=== PATIENT | female | born 1990 | race African-American/Black ===

== ENCOUNTER 2018-04-13 03:48 | Inpatient (IN) ==
[2018-04-13] MEDS ORDERED: ONDANSETRON 4 MG/2 ML VIAL ONE (04:11)
[2018-04-13] MEDS ORDERED: MORPHINE 4 MG/1 ML VIAL ONE (04:11)
[2018-04-13] MEDS ORDERED: SODIUM CHLORIDE 0.9% 1,000 ML IV STA ×2 (04:12→04:13)
[2018-04-13] MEDS ORDERED: MORPHINE 4 MG/1 ML VIAL IV STA ×2 (04:13→04:29)
[2018-04-13] MEDS ORDERED: ONDANSETRON 4 MG/2 ML VIAL IV STA (04:13)
[2018-04-13 04:28] LABS: Basophils # 0.1 10*3/uL (0.0-0.2); Basophils % 0.3 % (0.0-0.8); Eosinophils # 0.1 10*3/uL (0.0-0.87); Eosinophils % 0.5 % (0.00-10.9); Immature Granulocytes % 7.3 %; Immature Granulocytes Absolute 1.49 #; Lymphocytes # 4.6 10*3/uL (1.4-4.0); Lymphocytes % 22.7 % (21.3-54.2); Mean Corpuscular HGB Conc 33.1 GM/DL (32-36); Mean Corpuscular Hemoglobin 34 PG (27-34); Mean Corpuscular Volume 101.3 FL (87-102); Monocytes # 1.2 10*3/uL (0.11-0.8); Monocytes % 5.7 % (1.7-12.7); NRBC # 0.39 10*3/uL; Neutrophils # 12.9 10*3/uL (1.4-7.4); Neutrophils % 63.5 % (38.7-73.9); Platelet Count 285 T/CUMM (130-400); Red Blood Count 1.58 MC/CUMM (3.8-5.5); Red Cell Distribution Width 21.9 % (9.3-17.3); White Blood Count 20.4 T/CUMM (4-12)
[2018-04-13] MEDS ORDERED: KETOROLAC 30 MG/1 ML VIAL IV STA (04:29)
[2018-04-13 04:35] LABS: Hemoglobin 5.3 GM/DL (12.0-16.0)
[2018-04-13] MEDS ORDERED: SODIUM CHLORIDE 0.9% 1,000 ML IV PRN (04:39)
[2018-04-13 05:01] LABS: Albumin 4.2 G/DL (3.4-5.0); Bilirubin,Total 1.9 MG/DL (0.2-1.0); Calcium 7.9 MG/DL (8.5-10.1); Osmolality,Calculated 275.5 MOS/KG (273-304); Potassium 4.6 MMOL/L (3.5-5.1); Total Protein 7.5 G/DL (6.4-8.3)
[2018-04-13] MEDS ORDERED: guaiFENesin 200 MG/10 ML UDCUP PO PRN (05:33)
[2018-04-13] MEDS ORDERED: chlorproMAZINE INJ 50 MG in SODIUM CHLORIDE 0.9% 100 ML IV PRN (05:33)
[2018-04-13] MEDS ORDERED: LOPERAMIDE 2 MG CAPSULE PO PRN ×2 (05:33)
[2018-04-13] MEDS ORDERED: LACTULOSE 20 GM/30 ML UDCUP PO PRN (05:33)
[2018-04-13] MEDS ORDERED: chlorproMAZINE INJ 25 MG in SODIUM CHLORIDE 0.9% 100 ML IV PRN (05:33)
[2018-04-13] MEDS ORDERED: MORPHINE 10 MG/1 ML VIAL IV PRN (05:33)
[2018-04-13] MEDS ORDERED: chlorproMAZINE 25 MG TABLET PO PRN (05:33)
[2018-04-13] MEDS ORDERED: ALUMINUM/MAGNES/SIMETH MAX STR 30 ML UDCUP PO PRN (05:33)
[2018-04-13] MEDS ORDERED: ONDANSETRON 4 MG/2 ML VIAL IV PRN (05:33)
[2018-04-13] MEDS ORDERED: MYLANTA/LIDO VISC 2:1 300 ML BOTTLE SWISH/SPIT PRN (05:33)
[2018-04-13] MEDS ORDERED: MYLANTA/LIDO VISC 2:1 300 ML BOTTLE SWISH/SWAL PRN (05:33)
[2018-04-13] MEDS ORDERED: TEMAZEPAM 7.5 MG CAPSULE PO PRN (05:33)
[2018-04-13] MEDS ORDERED: PROMETHAZINE INJ 25 MG in SODIUM CHLORIDE 0.9% 50 ML IV PRN (05:33)
[2018-04-13] MEDS ORDERED: traMADol 50 MG TABLET PO PRN (05:33)
[2018-04-13] MEDS ORDERED: diphenhydrAMINE CAP 25 MG CAPSULE PO PRN (05:33)
[2018-04-13] MEDS ORDERED: BENZTROPINE 2 MG/2 ML AMP IV PRN (05:33)
[2018-04-13] MEDS ORDERED: SODIUM CHLORIDE 0.9% 1,000 ML IV SCH (06:00)
[2018-04-13 06:14] LABS: Band Neutrophils 2 % (0-10); Lymphocytes 23 % (20-55); Metamyelocytes 5 %; Myelocytes 5 %; Nucleated Red Blood Cells 4 (0-5); Segmented Neutrophils 60 % (50-85); Total Cells Counted 100
[2018-04-13 06:16] LABS: Hypochromasia 1+; Platelet Estimate Normal; Target Cells Few
[2018-04-13 06:17] LABS: Elliptocytes 1+; Polychromasia 1+; Sickle Cells Few
[2018-04-13 06:18] LABS: Howell-Jolly Bodies Few
[2018-04-13] MEDS: MORPHINE 10 MG/1 ML VIAL IV PRN ×3 (09:41→20:41)
[2018-04-13] MEDS: SODIUM CHLORIDE 0.45% 1,000 ML IV SCH (09:42)
[2018-04-13] MEDS: IBUPROFEN 600 MG TABLET PO SCH (09:42)
[2018-04-13] MEDS: FOLIC ACID 0.4 MG TABLET PO SCH (09:42)
[2018-04-13 11:02] LABS: Basophils # 0.1 10*3/uL (0.0-0.2); Basophils % 0.3 % (0.0-0.8); Eosinophils # 0.1 10*3/uL (0.0-0.87); Eosinophils % 0.5 % (0.00-10.9); Immature Granulocytes % 7.8 %; Immature Granulocytes Absolute 1.73 #; Lymphocytes % 27.2 % (21.3-54.2); Mean Corpuscular HGB Conc 32.7 GM/DL (32-36); Mean Corpuscular Hemoglobin 32 PG (27-34); Mean Corpuscular Volume 99.3 FL (87-102); Mean Platelet Volume 9.7 FL (9.6-12.0); Monocytes # 1.1 10*3/uL (0.11-0.8); Monocytes % 4.9 % (1.7-12.7); Neutrophils # 13.1 10*3/uL (1.4-7.4); Neutrophils % 59.3 % (38.7-73.9); Platelet Count 216 T/CUMM (130-400); Red Blood Count 1.48 MC/CUMM (3.8-5.5); Red Cell Distribution Width 21.6 % (9.3-17.3); White Blood Count 22.1 T/CUMM (4-12)
[2018-04-13 11:18] LABS: Hematocrit 14.7 VOL% (35.7-47.0); Hemoglobin 4.8 GM/DL (12.0-16.0)
[2018-04-13 13:38] LABS: Apearance,Urine CLEAR (Clear); Bilirubin,Urine Negative (Negative); Blood, Urine Small mg/dL (Negative); Glucose,Urine (UA) Negative (Negative); Hyaline Casts,Urine 1 /LPF (0-3); Ketones,Urine Negative (Negative); Mucus,Urine Occasional /LPF (Occasional); Nitrite,Urine Negative (Negative); Protein,Urine 30 MG/DL; Urine Color Yellow (Yellow); Urine Specific Gravity 1.009 (1.001-1.035); Urine Urobilinogen < 2.0 EU/DL (0.2-1.0); WBC,Urine 1 /HPF (0-6)
[2018-04-13 13:38] LABS: Eosinophils 4 % (0-10); Lymphocytes 30 % (20-55); Nucleated Red Blood Cells 6 (0-5); Segmented Neutrophils 64 % (50-85); Total Cells Counted 100
[2018-04-13 13:39] LABS: Elliptocytes 1+; Macrocytosis 1+; Platelet Estimate Normal; Polychromasia 1+; Sickle Cells 1+
[2018-04-14] MEDS: SODIUM CHLORIDE 0.45% 1,000 ML IV SCH ×4 (00:38→21:52)
[2018-04-14] MEDS: MORPHINE 10 MG/1 ML VIAL IV PRN ×4 (01:10→21:46)
[2018-04-14 04:57] LABS: Basophils # 0.1 10*3/uL (0.0-0.2); Basophils % 0.4 % (0.0-0.8); Eosinophils # 0.1 10*3/uL (0.0-0.87); Eosinophils % 0.2 % (0.00-10.9); Hematocrit 23.2 VOL% (35.7-47.0); Hemoglobin 7.8 GM/DL (12.0-16.0); Immature Granulocytes % 4.5 %; Immature Granulocytes Absolute 0.97 #; Lymphocytes # 2.3 10*3/uL (1.4-4.0); Lymphocytes % 10.6 % (21.3-54.2); Mean Corpuscular HGB Conc 33.6 GM/DL (32-36); Mean Corpuscular Hemoglobin 30 PG (27-34); Mean Corpuscular Volume 89.9 FL (87-102); Mean Platelet Volume 9.7 FL (9.6-12.0); Monocytes # 0.8 10*3/uL (0.11-0.8); Monocytes % 3.7 % (1.7-12.7); NRBC # 1.47 10*3/uL; Neutrophils # 17.3 10*3/uL (1.4-7.4); Neutrophils % 80.6 % (38.7-73.9); Platelet Count 262 T/CUMM (130-400); Red Blood Count 2.58 MC/CUMM (3.8-5.5); Red Cell Distribution Width 21.1 % (9.3-17.3); White Blood Count 21.4 T/CUMM (4-12)
[2018-04-14] MEDS: ACETAMINOPHEN 325 MG TABLET PO PRN (05:17)
[2018-04-14 05:25] LABS: Albumin 3.7 G/DL (3.4-5.0); Bilirubin,Total 2.1 MG/DL (0.2-1.0); Osmolality,Calculated 267.1 MOS/KG (273-304); Total Protein 6.8 G/DL (6.4-8.3)
[2018-04-14 05:27] LABS: Band Neutrophils 4 % (0-10); Howell-Jolly Bodies Few; Hypochromasia 1+; Lymphocytes 9 % (20-55); Nucleated Red Blood Cells 13 (0-5); Platelet Estimate Adequate; Segmented Neutrophils 85 % (50-85); Sickle Cells Few; Target Cells Few; Total Cells Counted 100
[2018-04-14 05:28] LABS: Macrocytosis Slight; Polychromasia Slight
[2018-04-14] MEDS ORDERED: KETOROLAC 15 MG/1 ML VIAL IV ONE (09:13)
[2018-04-14] MEDS: FOLIC ACID 0.4 MG TABLET PO SCH (09:51)
[2018-04-14] MEDS: CYCLOBENZAPRINE 10 MG TABLET PO PRN ×2 (09:51→20:19)
[2018-04-14] MEDS: IBUPROFEN 600 MG TABLET PO SCH (09:52)
[2018-04-14] MEDS: KETOROLAC 15 MG/1 ML VIAL IV PRN (14:41)
[2018-04-14] MEDS: ALPRAZolam 0.25 MG TABLET PO PRN (14:41)
[2018-04-14] MEDS: FONDAPARINUX 2.5 MG/0.5 ML SYRINGE SUBCUT SCH (17:55)
[2018-04-15] MEDS: ALPRAZolam 0.25 MG TABLET PO PRN (04:21)
[2018-04-15] MEDS: SODIUM CHLORIDE 0.45% 1,000 ML IV SCH ×3 (06:09→16:30)
[2018-04-15 06:10] LABS: Basophils % 0.2 % (0.0-0.8); Eosinophils # 0.2 10*3/uL (0.0-0.87); Eosinophils % 1.7 % (0.00-10.9); Hematocrit 22.8 VOL% (35.7-47.0); Hemoglobin 7.6 GM/DL (12.0-16.0); Immature Granulocytes % 1.2 %; Immature Granulocytes Absolute 0.16 #; Lymphocytes # 1.6 10*3/uL (1.4-4.0); Lymphocytes % 11.7 % (21.3-54.2); Mean Corpuscular HGB Conc 33.3 GM/DL (32-36); Mean Corpuscular Hemoglobin 30 PG (27-34); Mean Corpuscular Volume 89.1 FL (87-102); Mean Platelet Volume 9.7 FL (9.6-12.0); Monocytes # 0.6 10*3/uL (0.11-0.8); Monocytes % 4.2 % (1.7-12.7); NRBC # 2.28 10*3/uL; Neutrophils # 10.8 10*3/uL (1.4-7.4); Platelet Count 218 T/CUMM (130-400); Red Blood Count 2.56 MC/CUMM (3.8-5.5); Red Cell Distribution Width 20.7 % (9.3-17.3); White Blood Count 13.4 T/CUMM (4-12)
[2018-04-15 06:33] LABS: Band Neutrophils 2 % (0-10); Eosinophils 4 % (0-10); Hypochromasia Slight; Lymphocytes 14 % (20-55); Macrocytosis Slight; Nucleated Red Blood Cells 19 (0-5); Platelet Estimate Adequate; Polychromasia Slight; Segmented Neutrophils 75 % (50-85); Total Cells Counted 100
[2018-04-15 06:34] LABS: Howell-Jolly Bodies Few
[2018-04-15 06:35] LABS: Albumin 3.1 G/DL (3.4-5.0); Calcium 8.2 MG/DL (8.5-10.1); Osmolality,Calculated 272.7 MOS/KG (273-304); Potassium 3.6 MMOL/L (3.5-5.1); Sickle Cells Slight; Target Cells Few; Total Protein 6.5 G/DL (6.4-8.3)
[2018-04-15] MEDS: IBUPROFEN 600 MG TABLET PO SCH (08:40)
[2018-04-15] MEDS: FOLIC ACID 0.4 MG TABLET PO SCH (08:40)
[2018-04-15] MEDS: MORPHINE 10 MG/1 ML VIAL IV PRN ×4 (08:42→21:24)
[2018-04-15] MEDS: FONDAPARINUX 2.5 MG/0.5 ML SYRINGE SUBCUT SCH (08:47)
[2018-04-15] MEDS ORDERED: SODIUM CHLORIDE 0.9% 1,000 ML IV PRN ×2 (09:38→10:37)
[2018-04-15] MEDS: KETOROLAC 15 MG/1 ML VIAL IV PRN ×3 (10:07→16:16)
[2018-04-15] MEDS ORDERED: FUROSEMIDE 40 MG/4 ML VIAL IV ONE (11:41)
[2018-04-15] MEDS: PIPERACILLIN/TAZOBACTAM 3,375 MG in SODIUM CHLORIDE 0.9% 100 ML IV SCH (18:24)
[2018-04-15] MEDS: AZITHROMYCIN 250 MG TABLET PO SCH (18:24)
[2018-04-15] MEDS ORDERED: FUROSEMIDE 40 MG/4 ML VIAL ONE (21:30)
[2018-04-15 22:14] LABS: Barbiturates Screen,Urine Negative (Negative); Benzodiazepines Screen,Urine Negative (Negative); Cannabinoid Screen,Urine Negative (Negative); Opiate Screen,Urine Positive (Negative); Phencyclidine Screen,Urine Negative (Negative)
[2018-04-16] MEDS: PIPERACILLIN/TAZOBACTAM 3,375 MG in SODIUM CHLORIDE 0.9% 100 ML IV SCH ×3 (00:40→18:13)
[2018-04-16] MEDS: MORPHINE 10 MG/1 ML VIAL IV PRN ×4 (00:56→13:14)
[2018-04-16] MEDS: KETOROLAC 15 MG/1 ML VIAL IV PRN ×2 (04:47→23:57)
[2018-04-16 05:50] LABS: Basophils % 0.2 % (0.0-0.8); Eosinophils # 0.2 10*3/uL (0.0-0.87); Eosinophils % 1.4 % (0.00-10.9); Hematocrit 31.3 VOL% (35.7-47.0); Hemoglobin 10.4 GM/DL (12.0-16.0); Immature Granulocytes Absolute 0.11 #; Lymphocytes # 1.2 10*3/uL (1.4-4.0); Lymphocytes % 11.4 % (21.3-54.2); Mean Corpuscular HGB Conc 33.2 GM/DL (32-36); Mean Corpuscular Hemoglobin 29 PG (27-34); Mean Corpuscular Volume 88.4 FL (87-102); Mean Platelet Volume 9.2 FL (9.6-12.0); Monocytes # 0.5 10*3/uL (0.11-0.8); Monocytes % 4.5 % (1.7-12.7); NRBC # 1.54 10*3/uL; Neutrophils # 8.9 10*3/uL (1.4-7.4); Neutrophils % 81.5 % (38.7-73.9); Platelet Count 157 T/CUMM (130-400); Red Blood Count 3.54 MC/CUMM (3.8-5.5); Red Cell Distribution Width 18.8 % (9.3-17.3); White Blood Count 10.9 T/CUMM (4-12)
[2018-04-16 06:17] LABS: Band Neutrophils 2 % (0-10); Eosinophils 3 % (0-10); Hypochromasia 1+; Lymphocytes 9 % (20-55); Macrocytosis 1+; Nucleated Red Blood Cells 18 (0-5); Segmented Neutrophils 83 % (50-85); Total Cells Counted 100
[2018-04-16 06:18] LABS: Polychromasia Slight; Sickle Cells Slight; Target Cells Few
[2018-04-16 06:19] LABS: Ovalocytes Slight
[2018-04-16 06:20] LABS: Pappenheimer Bodies Slight
[2018-04-16 06:21] LABS: Howell-Jolly Bodies Slight; Platelet Estimate Adequate
[2018-04-16 07:43] LABS: Potassium 3.5 MMOL/L (3.5-5.1)
[2018-04-16 07:45] LABS: Calcium 8.2 MG/DL (8.5-10.1)
[2018-04-16 07:46] LABS: Albumin 3.1 G/DL (3.4-5.0); Osmolality,Calculated 271.8 MOS/KG (273-304)
[2018-04-16 08:00] LABS: Bilirubin,Total 2.5 MG/DL (0.2-1.0); Total Protein 6.3 G/DL (6.4-8.3)
[2018-04-16] MEDS: IBUPROFEN 600 MG TABLET PO SCH (10:08)
[2018-04-16] MEDS: AZITHROMYCIN 250 MG TABLET PO SCH (10:09)
[2018-04-16] MEDS: FOLIC ACID 0.4 MG TABLET PO SCH (10:09)
[2018-04-16] MEDS: FONDAPARINUX 2.5 MG/0.5 ML SYRINGE SUBCUT SCH (11:33)
[2018-04-16] MEDS: SODIUM CHLORIDE 0.45% 1,000 ML IV SCH ×2 (22:04→22:39)
[2018-04-17] MEDS: PIPERACILLIN/TAZOBACTAM 3,375 MG in SODIUM CHLORIDE 0.9% 100 ML IV SCH ×3 (01:33→18:02)
[2018-04-17] MEDS: MORPHINE 10 MG/1 ML VIAL IV PRN ×2 (04:15→09:37)
[2018-04-17] MEDS: AZITHROMYCIN 250 MG TABLET PO SCH (09:43)
[2018-04-17] MEDS: FOLIC ACID 0.4 MG TABLET PO SCH (09:43)
[2018-04-17] MEDS: ACETAMINOPHEN 325 MG TABLET PO PRN (09:43)
[2018-04-17] MEDS: IBUPROFEN 600 MG TABLET PO SCH (09:44)
[2018-04-17] MEDS: FONDAPARINUX 2.5 MG/0.5 ML SYRINGE SUBCUT SCH (09:55)
[2018-04-17] MEDS: KETOROLAC 15 MG/1 ML VIAL IV PRN (18:03)
[2018-04-17] MEDS: MAGNESIUM HYDROXIDE SUSP 30 ML UDCUP PO PRN (18:09)
[2018-04-18] MEDS: KETOROLAC 15 MG/1 ML VIAL IV PRN ×4 (01:09→21:04)
[2018-04-18] MEDS: SODIUM CHLORIDE 0.45% 1,000 ML IV SCH (01:13)
[2018-04-18] MEDS: PIPERACILLIN/TAZOBACTAM 3,375 MG in SODIUM CHLORIDE 0.9% 100 ML IV SCH ×3 (01:16→17:36)
[2018-04-18 04:50] LABS: Albumin 2.7 G/DL (3.4-5.0); Osmolality,Calculated 275.5 MOS/KG (273-304); Potassium 3.5 MMOL/L (3.5-5.1); Total Protein 6.5 G/DL (6.4-8.3)
[2018-04-18 06:23] LABS: Basophils % 0.4 % (0.0-0.8); Eosinophils # 0.3 10*3/uL (0.0-0.87); Eosinophils % 2.8 % (0.00-10.9); Hematocrit 26.1 VOL% (35.7-47.0); Hemoglobin 8.6 GM/DL (12.0-16.0); Immature Granulocytes % 0.9 %; Immature Granulocytes Absolute 0.08 #; Lymphocytes # 2.1 10*3/uL (1.4-4.0); Lymphocytes % 22.9 % (21.3-54.2); Mean Corpuscular Hemoglobin 29 PG (27-34); Mean Corpuscular Volume 87.6 FL (87-102); Mean Platelet Volume 10.7 FL (9.6-12.0); Monocytes # 0.7 10*3/uL (0.11-0.8); Monocytes % 7.2 % (1.7-12.7); NRBC # 0.96 10*3/uL; Neutrophils # 5.9 10*3/uL (1.4-7.4); Neutrophils % 65.8 % (38.7-73.9); Platelet Count 138 T/CUMM (130-400); Red Blood Count 2.98 MC/CUMM (3.8-5.5); Red Cell Distribution Width 18.6 % (9.3-17.3)
[2018-04-18 07:07] LABS: Band Neutrophils 2 % (0-10); Eosinophils 2 % (0-10); Lymphocytes 23 % (20-55); Metamyelocytes 1 %; Nucleated Red Blood Cells 20 (0-5); Platelet Estimate Decreased; Segmented Neutrophils 65 % (50-85); Total Cells Counted 100
[2018-04-18 07:08] LABS: Anisocytosis 2+; Elliptocytes 1+; Hypochromasia 1+; Macrocytosis 2+; Ovalocytes Few; Sickle Cells 2+; Target Cells 1+
[2018-04-18] MEDS: MAGNESIUM HYDROXIDE SUSP 30 ML UDCUP PO PRN (08:01)
[2018-04-18] MEDS: FOLIC ACID 0.4 MG TABLET PO SCH (08:03)
[2018-04-18] MEDS: AZITHROMYCIN 250 MG TABLET PO SCH (08:03)
[2018-04-18] MEDS: IBUPROFEN 600 MG TABLET PO SCH (08:06)
[2018-04-18] MEDS: FONDAPARINUX 2.5 MG/0.5 ML SYRINGE SUBCUT SCH (10:14)
[2018-04-18] MEDS: MORPHINE 10 MG/1 ML VIAL IV PRN (17:14)
[2018-04-18] MEDS: ACETAMINOPHEN 325 MG TABLET PO PRN (21:00)
[2018-04-19] MEDS: PIPERACILLIN/TAZOBACTAM 3,375 MG in SODIUM CHLORIDE 0.9% 100 ML IV SCH ×2 (00:52→09:49)
[2018-04-19] MEDS: KETOROLAC 15 MG/1 ML VIAL IV PRN (03:42)
[2018-04-19] MEDS: MORPHINE 10 MG/1 ML VIAL IV PRN ×2 (07:19→14:48)
[2018-04-19] MEDS ORDERED: KETOROLAC 15 MG/1 ML VIAL IV PRN (09:35)
[2018-04-19] MEDS: FOLIC ACID 0.4 MG TABLET PO SCH (09:47)
[2018-04-19] MEDS: AZITHROMYCIN 250 MG TABLET PO SCH (09:47)
[2018-04-19] MEDS: IBUPROFEN 600 MG TABLET PO SCH (09:48)
[2018-04-19] MEDS: FONDAPARINUX 2.5 MG/0.5 ML SYRINGE SUBCUT SCH (09:49)
[2018-04-19] MEDS: SODIUM CHLORIDE 0.45% 1,000 ML IV SCH ×2 (09:52→16:35)
[2018-04-19 16:13] VITALS: BP 123/83
== END 2018-04-19 17:15 | disposition home or self-care (01) | DRG 812 ==
LOC: EDUNIT# → EDBD → N.ED 03:48 → N.EDINP 05:33 → N.4E 06:18
PROVIDERS: ADMIT Specialist; ATTEND Specialist

== ENCOUNTER 2019-04-30 23:03 | Inpatient (IN) ==
[2019-04-30] MEDS ORDERED: SODIUM CHLORIDE 0.9% 1,000 ML IV STA (23:17)
[2019-04-30] MEDS ORDERED: HYDROmorphone 2 MG/1 ML VIAL IV STA (23:18)
[2019-04-30] MEDS ORDERED: KETOROLAC 30 MG/1 ML VIAL IV STA (23:18)
[2019-04-30] MEDS ORDERED: ONDANSETRON 4 MG/2 ML VIAL IV STA (23:19)
[2019-05-01 00:06] LABS: Basophils # 0.1 10*3/uL (0.0-0.2); Basophils % 0.5 % (0.0-0.8); Eosinophils # 0.7 10*3/uL (0.0-0.87); Eosinophils % 2.8 % (0.00-10.9); Hemoglobin 6.6 GM/DL (12.0-16.0); Immature Granulocytes % 3.6 %; Immature Granulocytes Absolute 0.95 #; Lymphocytes # 8.8 10*3/uL (1.4-4.0); Lymphocytes % 33.2 % (21.3-54.2); Mean Corpuscular Volume 102.6 FL (87-102); Mean Platelet Volume 9.1 FL (9.6-12.0); Monocytes % 9.5 % (1.7-12.7); NRBC # 0.27 10*3/uL; Neutrophils % 50.4 % (38.7-73.9); Platelet Count 418 T/CUMM (130-400); Red Blood Count 1.95 MC/CUMM (3.8-5.5); Red Cell Distribution Width 19.1 % (9.3-17.3); White Blood Count 26.4 T/CUMM (4-12)
[2019-05-01 00:24] LABS: Albumin 3.8 G/DL (3.4-5.0); Bilirubin,Total 2.6 MG/DL (0.2-1.0); Calcium 7.9 MG/DL (8.5-10.1); Osmolality,Calculated 277.4 MOS/KG (273-304); Total Protein 6.7 G/DL (6.4-8.3)
[2019-05-01 01:15] LABS: Anisocytosis 3+; Band Neutrophils 2 % (0-10); Eosinophils 1 % (0-10); Lymphocytes 38 % (20-55); Nucleated Red Blood Cells 2 (0-5); Platelet Estimate Increased; Segmented Neutrophils 52 % (50-85); Total Cells Counted 100
[2019-05-01 01:16] LABS: Acanthocytes 1+; Howell-Jolly Bodies Few; Pappenheimer Bodies 2+; Polychromasia Few; Sickle Cells 3+
[2019-05-01 01:17] LABS: Elliptocytes 2+; Hypochromasia 2+; Macrocytosis 2+; Microcytosis 1+; Ovalocytes 1+; Poikilocytosis 3+; Target Cells 2+
[2019-05-01] MEDS ORDERED: hydrALAZINE 20 MG/1 ML VIAL IV PRN (02:43)
[2019-05-01] MEDS ORDERED: MORPHINE 4 MG/1 ML VIAL IV PRN (02:43)
[2019-05-01] MEDS ORDERED: PROMETHAZINE 25 MG/1 ML VIAL IM PRN (02:43)
[2019-05-01] MEDS ORDERED: ACETAMINOPHEN 325 MG TABLET PO PRN (02:43)
[2019-05-01] MEDS ORDERED: SODIUM CHLORIDE 0.9% 1,000 ML IV PRN (02:43)
[2019-05-01] MEDS ORDERED: ALUMINUM/MAGNES/SIMETH MAX STR 30 ML UDCUP PO PRN (02:43)
[2019-05-01] MEDS ORDERED: ONDANSETRON 4 MG/2 ML VIAL IV PRN (02:43)
[2019-05-01] MEDS ORDERED: ALBUTEROL/IPRATROPIUM 3 ML NEB RESP TX PRN (02:43)
[2019-05-01] MEDS ORDERED: NICOTINE 21 MG/24 HR PATCH TRANSDERM PRN (02:43)
[2019-05-01] MEDS: SODIUM CHLORIDE 0.9% 1,000 ML IV SCH ×3 (03:10→16:47)
[2019-05-01] MEDS ORDERED: HYDROmorphone 2 MG/1 ML VIAL IV ONE (05:10)
[2019-05-01] MEDS: FOLIC ACID 0.4 MG TABLET PO SCH (09:48)
[2019-05-01] MEDS ORDERED: KETOROLAC 30 MG/1 ML VIAL IV SCH (10:00)
[2019-05-01] MEDS: KETOROLAC 30 MG/1 ML VIAL IV PRN (11:54)
[2019-05-01] MEDS: FONDAPARINUX 2.5 MG/0.5 ML SYRINGE SUBCUT SCH (11:55)
[2019-05-01] MEDS: MORPHINE 4 MG/1 ML VIAL IV PRN ×2 (16:42→20:54)
[2019-05-01] MEDS: diphenhydrAMINE CAP 25 MG CAPSULE PO PRN (23:43)
[2019-05-02] MEDS: KETOROLAC 30 MG/1 ML VIAL IV PRN ×3 (00:21→14:42)
[2019-05-02 04:58] LABS: Hematocrit 23.8 VOL% (35.7-47.0); Hemoglobin 7.9 GM/DL (12.0-16.0)
[2019-05-02] MEDS: MORPHINE 4 MG/1 ML VIAL IV PRN ×2 (05:24→19:28)
[2019-05-02] MEDS: SODIUM CHLORIDE 0.9% 1,000 ML IV SCH ×3 (05:27→21:14)
[2019-05-02] MEDS: diphenhydrAMINE CAP 25 MG CAPSULE PO PRN ×3 (06:10→21:08)
[2019-05-02] MEDS: FOLIC ACID 0.4 MG TABLET PO SCH (08:50)
[2019-05-02 10:25] LABS: Basophils # 0.1 10*3/uL (0.0-0.2); Basophils % 0.3 % (0.0-0.8); Lymphocytes # 4.2 10*3/uL (1.4-4.0); Lymphocytes % 20.4 % (21.3-54.2); Monocytes % 7.5 % (1.7-12.7); Neutrophils % 65.6 % (38.7-73.9); White Blood Count 20.6 T/CUMM (4-12)
[2019-05-02] MEDS: FONDAPARINUX 2.5 MG/0.5 ML SYRINGE SUBCUT SCH (12:15)
[2019-05-02] MEDS ORDERED: cefTRIAXone 1,000 MG in SYRINGE 1 EACH IV SCH (14:00)
[2019-05-02] MEDS: cefTRIAXone 2,000 MG in SYRINGE 1 EACH IV SCH (14:43)
[2019-05-02] MEDS ORDERED: SODIUM CHLORIDE 0.9% 1,000 ML IV PRN (15:33)
[2019-05-02 17:33] LABS: Apearance,Urine CLEAR (Clear); Bacteria,Urine Occasional /HPF (Few); Bilirubin,Urine Negative (Negative); Blood, Urine Negative (Negative); Glucose,Urine (UA) Negative (Negative); Ketones,Urine Negative (Negative); Nitrite,Urine Negative (Negative); Protein,Urine Negative; Squamous Epithelial Cell,Urine Occasional /HPF (0-10); Urine Color Yellow (Yellow); Urine Specific Gravity 1.009 (1.001-1.035)
[2019-05-03] MEDS: diphenhydrAMINE CAP 25 MG CAPSULE PO PRN ×2 (05:11→21:06)
[2019-05-03 05:43] LABS: Basophils # 0.1 10*3/uL (0.0-0.2); Basophils % 0.6 % (0.0-0.8); Eosinophils # 1.2 10*3/uL (0.0-0.87); Eosinophils % 6.5 % (0.00-10.9); Hematocrit 21.7 VOL% (35.7-47.0); Hemoglobin 7.1 GM/DL (12.0-16.0); Immature Granulocytes % 0.8 %; Immature Granulocytes Absolute 0.15 #; Lymphocytes # 3.8 10*3/uL (1.4-4.0); Lymphocytes % 21.2 % (21.3-54.2); Mean Corpuscular HGB Conc 32.7 GM/DL (32-36); Mean Corpuscular Volume 96.4 FL (87-102); Mean Platelet Volume 9.4 FL (9.6-12.0); Monocytes % 6.9 % (1.7-12.7); NRBC # 0.34 10*3/uL; Platelet Count 339 T/CUMM (130-400); Red Blood Count 2.25 MC/CUMM (3.8-5.5)
[2019-05-03 05:53] LABS: Calcium 8.2 MG/DL (8.5-10.1); Osmolality,Calculated 277.4 MOS/KG (273-304)
[2019-05-03] MEDS: FOLIC ACID 0.4 MG TABLET PO SCH (10:23)
[2019-05-03] MEDS: FONDAPARINUX 2.5 MG/0.5 ML SYRINGE SUBCUT SCH (10:24)
[2019-05-03] MEDS: cefTRIAXone 2,000 MG in SYRINGE 1 EACH IV SCH (13:55)
[2019-05-03] MEDS: BISACODYL 5 MG TABLET PO SCH ×2 (15:23→21:06)
[2019-05-03] MEDS: SODIUM CHLORIDE 0.9% 1,000 ML IV SCH ×2 (15:23→16:05)
[2019-05-03] MEDS: KETOROLAC 30 MG/1 ML VIAL IV PRN (18:49)
[2019-05-04 06:23] LABS: Basophils # 0.1 10*3/uL (0.0-0.2); Basophils % 0.5 % (0.0-0.8); Eosinophils # 1.2 10*3/uL (0.0-0.87); Eosinophils % 6.8 % (0.00-10.9); Hematocrit 20.9 VOL% (35.7-47.0); Hemoglobin 6.8 GM/DL (12.0-16.0); Immature Granulocytes % 0.7 %; Immature Granulocytes Absolute 0.12 #; Lymphocytes # 2.1 10*3/uL (1.4-4.0); Lymphocytes % 12.6 % (21.3-54.2); Mean Corpuscular HGB Conc 32.5 GM/DL (32-36); Mean Corpuscular Volume 95.9 FL (87-102); Mean Platelet Volume 9.3 FL (9.6-12.0); NRBC # 0.12 10*3/uL; Neutrophils % 71.4 % (38.7-73.9); Platelet Count 333 T/CUMM (130-400); Red Blood Count 2.18 MC/CUMM (3.8-5.5); Red Cell Distribution Width 21.1 % (9.3-17.3); White Blood Count 16.9 T/CUMM (4-12)
[2019-05-04 06:45] LABS: Calcium 8.5 MG/DL (8.5-10.1); Osmolality,Calculated 274.5 MOS/KG (273-304)
[2019-05-04 06:47] LABS: Hypochromasia 1+; Macrocytosis Slight; Polychromasia Slight; Sickle Cells Few
[2019-05-04 06:48] LABS: Elliptocytes Few; Platelet Estimate Adequate
[2019-05-04] MEDS ORDERED: INFLUENZA VIRUS VACCINE 0.5 ML SYRINGE IM ONE (07:20)
[2019-05-04] MEDS: FOLIC ACID 0.4 MG TABLET PO SCH (09:02)
[2019-05-04] MEDS: BISACODYL 5 MG TABLET PO SCH ×2 (09:03→21:15)
[2019-05-04] MEDS: FONDAPARINUX 2.5 MG/0.5 ML SYRINGE SUBCUT SCH (09:21)
[2019-05-04] MEDS: SODIUM CHLORIDE 0.9% 1,000 ML IV SCH ×3 (09:21→23:04)
[2019-05-04] MEDS: cefTRIAXone 2,000 MG in SYRINGE 1 EACH IV SCH (14:30)
[2019-05-05 06:19] LABS: Hematocrit 26.3 VOL% (35.7-47.0)
[2019-05-05 06:26] LABS: Hemoglobin 8.7 GM/DL (12.0-16.0)
[2019-05-05] MEDS: BISACODYL 5 MG TABLET PO SCH (10:29)
[2019-05-05] MEDS: FOLIC ACID 0.4 MG TABLET PO SCH (10:29)
[2019-05-05] MEDS: SODIUM CHLORIDE 0.9% 1,000 ML IV SCH ×2 (10:49→15:20)
[2019-05-05] MEDS: FONDAPARINUX 2.5 MG/0.5 ML SYRINGE SUBCUT SCH (10:49)
[2019-05-05 11:36] VITALS: BP 106/65
[2019-05-05] MEDS: cefTRIAXone 2,000 MG in SYRINGE 1 EACH IV SCH (15:20)
== END 2019-05-05 15:15 | disposition home or self-care (01) | DRG 812 ==
LOC: N.ED 23:03 → N.EDINP 05-01 02:43 → SUATTDRO 05-01 02:43 → N.4E 05-01 03:33
PROVIDERS: ADMIT Internal Medicine; ATTEND Family Medicine

== ENCOUNTER 2020-07-16 17:38 | Inpatient (IN) ==
[2020-07-16] MEDS ORDERED: SODIUM CHLORIDE 0.9% 1,000 ML IV STA (18:20)
[2020-07-16] MEDS ORDERED: MORPHINE 4 MG/1 ML VIAL IV STA (18:33)
[2020-07-16] MEDS ORDERED: ONDANSETRON 4 MG/2 ML VIAL IV STA (18:33)
[2020-07-16 18:36] LABS: Basophils # 0.1 10*3/uL (0.0-0.2); Basophils % 0.5 % (0.0-0.8); Eosinophils # 0.2 10*3/uL (0.0-0.87); Eosinophils % 0.6 % (0.00-10.9); Hematocrit 18.5 VOL% (35.7-47.0); Immature Granulocytes % 4.2 %; Immature Granulocytes Absolute 1.07 #; Lymphocytes # 3.5 10*3/uL (1.4-4.0); Lymphocytes % 13.8 % (21.3-54.2); Mean Corpuscular HGB Conc 34.6 GM/DL (32-36); Mean Corpuscular Volume 106.9 FL (87-102); Mean Platelet Volume 9.8 FL (9.6-12.0); Monocytes % 5.2 % (1.7-12.7); NRBC # 0.58 10*3/uL; Neutrophils % 75.7 % (38.7-73.9); Platelet Count 298 T/CUMM (130-400); Red Blood Count 1.73 MC/CUMM (3.8-5.5); White Blood Count 25.3 T/CUMM (4-12)
[2020-07-16 18:40] LABS: Hemoglobin 6.4 GM/DL (12.0-16.0)
[2020-07-16 18:47] LABS: Albumin 4.4 G/DL (3.4-5.0); Bilirubin,Total 4.6 MG/DL (0.2-1.0); Calcium 9.1 MG/DL (8.5-10.1); Osmolality,Calculated 274.5 MOS/KG (273-304); Potassium 3.7 MMOL/L (3.5-5.1); Total Protein 7.7 G/DL (6.4-8.2)
[2020-07-16 18:56] LABS: Barbiturates Screen,Urine Negative (Negative); Benzodiazepines Screen,Urine Negative (Negative); Cannabinoid Screen,Urine Negative (Negative); Opiate Screen,Urine Negative (Negative); Phencyclidine Screen,Urine Negative (Negative)
[2020-07-16 19:05] LABS: Bilirubin,Urine Negative (Negative); Blood, Urine Small mg/dL (Negative); Glucose,Urine (UA) Negative (Negative); Ketones,Urine Negative (Negative); Nitrite,Urine Negative (Negative); Protein,Urine Negative; RBC,Urine 2 /HPF (0-4); Squamous Epithelial Cell,Urine Occasional /HPF (0-10); Urine Appearance CLEAR (Clear); Urine Color Yellow (Yellow); Urine Specific Gravity 1.008 (1.001-1.035)
[2020-07-16] MEDS ORDERED: KETOROLAC 30 MG/1 ML VIAL IV STA (19:09)
[2020-07-16 19:39] LABS: Lymphocytes 10 % (20-55); Nucleated Red Blood Cells 2 (0-5); Segmented Neutrophils 85 % (50-85); Total Cells Counted 100
[2020-07-16 19:41] LABS: Polychromasia 2+
[2020-07-16 19:42] LABS: Howell-Jolly Bodies 1+; Pappenheimer Bodies 2+; Stomatocytes 1+
[2020-07-16 19:43] LABS: Anisocytosis 2+; Ovalocytes 1+; Poikilocytosis 2+; Sickle Cells Few
[2020-07-16 19:45] LABS: Platelet Estimate Normal
[2020-07-16] MEDS ORDERED: HYDROmorphone 2 MG/1 ML VIAL IV ONE (20:06)
[2020-07-16] MEDS ORDERED: SODIUM CHLORIDE 0.9% 1,000 ML IV PRN (20:43)
[2020-07-16] MEDS ORDERED: NALOXONE 0.4 MG/ML VIAL IV PRN (20:43)
[2020-07-16] MEDS ORDERED: GLUCAGON 1 MG VIAL IM PRN (20:50)
[2020-07-16] MEDS ORDERED: DEXTROSE 50% 25 GM/50 ML VIAL IV PRN (20:50)
[2020-07-16] MEDS ORDERED: ONDANSETRON 4 MG/2 ML VIAL IV PRN (20:52)
[2020-07-16] MEDS ORDERED: DOCUSATE SODIUM 100 MG CAPSULE PO PRN (20:52)
[2020-07-16] MEDS ORDERED: hydrALAZINE 20 MG/1 ML VIAL IV PRN (20:52)
[2020-07-16] MEDS ORDERED: ENOXAPARIN 40 MG/0.4 ML SYRINGE SUBCUT SCH (21:00)
[2020-07-16] MEDS ORDERED: HYDROmorphone PCA 30 MG/30 ML SYRINGE IV SCH (21:00)
[2020-07-16] MEDS: SODIUM CHLORIDE 0.9% 1,000 ML IV SCH (22:06)
[2020-07-16] MEDS ORDERED: cefTRIAXone 1,000 MG in SODIUM CHLORIDE 0.9% 100 ML IV SCH (23:00)
[2020-07-17] MEDS ORDERED: SODIUM CHLORIDE 0.9% 500 ML IV ONE ×2 (00:45→01:37)
[2020-07-17] MEDS: diphenhydrAMINE CAP 25 MG CAPSULE PO PRN ×2 (01:51→12:48)
[2020-07-17 05:16] LABS: Basophils # 0.1 10*3/uL (0.0-0.2); Basophils % 0.5 % (0.0-0.8); Eosinophils # 0.4 10*3/uL (0.0-0.87); Eosinophils % 2.1 % (0.00-10.9); Immature Granulocytes % 1.8 %; Immature Granulocytes Absolute 0.35 #; Lymphocytes # 4.5 10*3/uL (1.4-4.0); Lymphocytes % 23.2 % (21.3-54.2); Mean Corpuscular HGB Conc 36.1 GM/DL (32-36); Mean Corpuscular Volume 105.1 FL (87-102); Mean Platelet Volume 9.6 FL (9.6-12.0); Monocytes % 6.2 % (1.7-12.7); Neutrophils % 66.2 % (38.7-73.9); Platelet Count 225 T/CUMM (130-400); Red Blood Count 1.37 MC/CUMM (3.8-5.5); Red Cell Distribution Width 18.7 % (9.3-17.3); White Blood Count 19.3 T/CUMM (4-12)
[2020-07-17 05:18] LABS: Hemoglobin 5.2 GM/DL (12.0-16.0)
[2020-07-17 05:19] LABS: Hematocrit 14.4 VOL% (35.7-47.0)
[2020-07-17 05:52] LABS: Albumin 3.5 G/DL (3.4-5.0); Bilirubin,Total 4.2 MG/DL (0.2-1.0); Calcium 8.1 MG/DL (8.5-10.1); Osmolality,Calculated 273.5 MOS/KG (273-304); Potassium 3.9 MMOL/L (3.5-5.1); Total Protein 6.3 G/DL (6.4-8.2)
[2020-07-17] MEDS: SODIUM CHLORIDE 0.9% 1,000 ML IV SCH ×2 (07:12→14:31)
[2020-07-17 09:01] LABS: Anisocytosis 2+; Platelet Estimate Normal; Poikilocytosis 1+
[2020-07-17 09:02] LABS: Polychromasia 1+; Sickle Cells 1+
[2020-07-17 09:03] LABS: Macrocytosis 1+
[2020-07-17] MEDS: SODIUM CHLORIDE 0.45% 1,000 ML IV SCH (13:27)
[2020-07-17] MEDS ORDERED: HYDROmorphone PCA 30 MG/30 ML SYRINGE IV SCH (21:00)
[2020-07-17] MEDS: ACETAMINOPHEN 325 MG TABLET PO PRN (21:29)
[2020-07-18] MEDS: HYDROmorphone 2 MG/1 ML VIAL IV PRN ×4 (01:33→21:43)
[2020-07-18] MEDS: diphenhydrAMINE CAP 25 MG CAPSULE PO PRN (02:00)
[2020-07-18] MEDS: ACETAMINOPHEN 325 MG TABLET PO PRN (05:14)
[2020-07-18 06:09] LABS: Basophils # 0.1 10*3/uL (0.0-0.2); Basophils % 0.4 % (0.0-0.8); Eosinophils # 0.4 10*3/uL (0.0-0.87); Hematocrit 22.5 VOL% (35.7-47.0); Hemoglobin 7.7 GM/DL (12.0-16.0); Immature Granulocytes % 1.1 %; Immature Granulocytes Absolute 0.19 #; Lymphocytes # 2.4 10*3/uL (1.4-4.0); Lymphocytes % 14.1 % (21.3-54.2); Mean Corpuscular HGB Conc 34.2 GM/DL (32-36); Mean Corpuscular Volume 97.4 FL (87-102); Mean Platelet Volume 9.3 FL (9.6-12.0); Monocytes % 7.3 % (1.7-12.7); NRBC # 0.78 10*3/uL; Neutrophils % 75.1 % (38.7-73.9); Platelet Count 255 T/CUMM (130-400); Red Blood Count 2.31 MC/CUMM (3.8-5.5); Red Cell Distribution Width 19.5 % (9.3-17.3); White Blood Count 17.2 T/CUMM (4-12)
[2020-07-18 06:32] LABS: Albumin 3.5 G/DL (3.4-5.0); Bilirubin,Total 4.7 MG/DL (0.2-1.0); Calcium 8.7 MG/DL (8.5-10.1); Osmolality,Calculated 271.8 MOS/KG (273-304); Potassium 3.4 MMOL/L (3.5-5.1); Total Protein 6.6 G/DL (6.4-8.2)
[2020-07-18] MEDS: SODIUM CHLORIDE 0.45% 1,000 ML IV SCH ×2 (07:30→19:23)
[2020-07-18] MEDS ORDERED: POTASSIUM CHLORIDE 20 MEQ TABLET PO ONE (13:00)
[2020-07-18] MEDS: oxyCODONE/ACETAMINOPHEN 5-325 MG TABLET PO PRN ×2 (14:01→20:10)
[2020-07-18 19:00] LABS: Bilirubin,Urine Negative (Negative); Blood, Urine Negative (Negative); Glucose,Urine (UA) Negative (Negative); Ketones,Urine Negative (Negative); Nitrite,Urine Negative (Negative); Protein,Urine Negative; RBC,Urine 1 /HPF (0-4); Squamous Epithelial Cell,Urine Occasional /HPF (0-10); Urine Appearance CLEAR (Clear); Urine Color Yellow (Yellow); Urine Specific Gravity 1.006 (1.001-1.035)
[2020-07-18] MEDS ORDERED: HYDROmorphone 2 MG TABLET PO PRN (20:44)
[2020-07-18] MEDS: HYDROXYUREA 500 MG CAPSULE PO SCH (21:38)
[2020-07-19] MEDS: oxyCODONE/ACETAMINOPHEN 5-325 MG TABLET PO PRN ×2 (03:44→11:20)
[2020-07-19 05:20] LABS: Basophils # 0.1 10*3/uL (0.0-0.2); Basophils % 0.4 % (0.0-0.8); Eosinophils # 0.6 10*3/uL (0.0-0.87); Eosinophils % 4.5 % (0.00-10.9); Hematocrit 20.6 VOL% (35.7-47.0); Hemoglobin 7.1 GM/DL (12.0-16.0); Immature Granulocytes % 0.7 %; Lymphocytes # 2.6 10*3/uL (1.4-4.0); Lymphocytes % 18.2 % (21.3-54.2); Mean Corpuscular HGB Conc 34.5 GM/DL (32-36); Mean Corpuscular Volume 94.9 FL (87-102); Mean Platelet Volume 9.9 FL (9.6-12.0); NRBC # 0.27 10*3/uL; Neutrophils % 68.2 % (38.7-73.9); Platelet Count 227 T/CUMM (130-400); Red Blood Count 2.17 MC/CUMM (3.8-5.5); Red Cell Distribution Width 19.9 % (9.3-17.3); White Blood Count 14.2 T/CUMM (4-12)
[2020-07-19 05:50] LABS: Hypochromasia 2+; Platelet Estimate Adequate
[2020-07-19 05:51] LABS: Howell-Jolly Bodies Few; Ovalocytes Slight
[2020-07-19 05:58] LABS: Albumin 3.2 G/DL (3.4-5.0); Bilirubin,Total 6.4 MG/DL (0.2-1.0); Calcium 8.5 MG/DL (8.5-10.1); Potassium 3.3 MMOL/L (3.5-5.1); Total Protein 6.5 G/DL (6.4-8.2)
[2020-07-19] MEDS ORDERED: SODIUM CHLORIDE 0.9% 1,000 ML IV PRN ×2 (09:02→09:30)
[2020-07-19] MEDS: FOLIC ACID 0.4 MG TABLET PO SCH (09:03)
[2020-07-19] MEDS ORDERED: POTASSIUM CHLORIDE 20 MEQ TABLET PO ONE (10:00)
[2020-07-19] MEDS: HYDROXYUREA 500 MG CAPSULE PO SCH ×2 (10:02→21:40)
[2020-07-19] MEDS: SODIUM CHLORIDE 0.45% 1,000 ML IV SCH ×4 (10:02→18:25)
[2020-07-19] MEDS: HYDROmorphone 2 MG/1 ML VIAL IV PRN (17:49)
[2020-07-20] MEDS: oxyCODONE/ACETAMINOPHEN 5-325 MG TABLET PO PRN ×3 (01:20→21:11)
[2020-07-20] MEDS: SODIUM CHLORIDE 0.45% 1,000 ML IV SCH ×3 (04:25→21:42)
[2020-07-20 05:50] LABS: Basophils # 0.1 10*3/uL (0.0-0.2); Basophils % 0.5 % (0.0-0.8); Eosinophils # 0.7 10*3/uL (0.0-0.87); Eosinophils % 6.6 % (0.00-10.9); Hematocrit 25.8 VOL% (35.7-47.0); Hemoglobin 8.6 GM/DL (12.0-16.0); Immature Granulocytes % 0.5 %; Immature Granulocytes Absolute 0.05 #; Lymphocytes # 3.2 10*3/uL (1.4-4.0); Lymphocytes % 29.8 % (21.3-54.2); Mean Corpuscular HGB Conc 33.3 GM/DL (32-36); Mean Corpuscular Volume 93.5 FL (87-102); Monocytes % 7.6 % (1.7-12.7); NRBC # 0.07 10*3/uL; Platelet Count 240 T/CUMM (130-400); Red Blood Count 2.76 MC/CUMM (3.8-5.5); Red Cell Distribution Width 17.5 % (9.3-17.3); White Blood Count 10.6 T/CUMM (4-12)
[2020-07-20 06:14] LABS: Albumin 3.1 G/DL (3.4-5.0); Bilirubin,Total 6.2 MG/DL (0.2-1.0); Calcium 8.6 MG/DL (8.5-10.1); Osmolality,Calculated 269.8 MOS/KG (273-304); Potassium 3.6 MMOL/L (3.5-5.1); Total Protein 6.4 G/DL (6.4-8.2)
[2020-07-20] MEDS: FOLIC ACID 0.4 MG TABLET PO SCH (09:31)
[2020-07-20] MEDS: HYDROXYUREA 500 MG CAPSULE PO SCH (09:31)
[2020-07-20] MEDS: HYDROmorphone 2 MG/1 ML VIAL IV PRN (23:28)
[2020-07-21] MEDS: SODIUM CHLORIDE 0.45% 1,000 ML IV SCH ×2 (05:46→10:33)
[2020-07-21 06:35] LABS: Basophils # 0.1 10*3/uL (0.0-0.2); Basophils % 0.6 % (0.0-0.8); Eosinophils # 0.8 10*3/uL (0.0-0.87); Eosinophils % 8.8 % (0.00-10.9); Immature Granulocytes % 0.5 %; Immature Granulocytes Absolute 0.04 #; Lymphocytes # 2.7 10*3/uL (1.4-4.0); Lymphocytes % 30.8 % (21.3-54.2); Mean Corpuscular HGB Conc 34.8 GM/DL (32-36); Mean Corpuscular Volume 90.6 FL (87-102); Mean Platelet Volume 10.3 FL (9.6-12.0); Monocytes % 9.4 % (1.7-12.7); Neutrophils % 49.9 % (38.7-73.9); Platelet Count 234 T/CUMM (130-400); Red Blood Count 2.54 MC/CUMM (3.8-5.5); Red Cell Distribution Width 17.8 % (9.3-17.3); White Blood Count 8.8 T/CUMM (4-12)
[2020-07-21 06:53] LABS: Calcium 8.5 MG/DL (8.5-10.1); Osmolality,Calculated 268.8 MOS/KG (273-304); Potassium 3.6 MMOL/L (3.5-5.1)
[2020-07-21] MEDS: FOLIC ACID 0.4 MG TABLET PO SCH (10:32)
[2020-07-21 11:42] VITALS: BP 108/69
== END 2020-07-21 12:18 | disposition home or self-care (01) | DRG 662 ==
LOC: EDBD → EDUNIT# → N.ED 17:38 → N.EDINP 19:27 → SUATTDRO 19:27 → N.EDINP 21:13 → N.3E 21:47
PROVIDERS: ADMIT Emergency Medicine; ATTEND Internal Medicine